=== PATIENT | male | born 1950 | race Two or more races ===

== ENCOUNTER 2018-02-07 08:28 | Inpatient (IN) | payer OTHER ==
[~2018-02-07] VITALS: Ht 172.7 cm; Wt 104.3 kg
--- NOTE | 2018-02-07 08:40 | NUR ---
PLZ SEE PRE OP ADMISSION NOTES
[2018-02-07] MEDS ORDERED: MIDAZOLAM HCL 2 MG/2ML VIAL ONE (10:09)
[2018-02-07] MEDS ORDERED: BUPIVACAINE 0.75% DEXT-PF 2 ML AMPUL ONE (10:12)
[2018-02-07] MEDS ORDERED: TRANEXAMIC ACID 3,000 MG in SODIUM CHLORIDE IRRIG SOLUTION 70 ML IR ONE (10:30)
[2018-02-07] MEDS ORDERED: BACITRACIN 50000 UNITS/VIAL ONE (10:32)
[2018-02-07] MEDS ORDERED: LOSA-22 PO (11:51)
[2018-02-07] MEDS ORDERED: HYDROMORPHONE INJ 2 MG/ML DISP.SYRIN IV PRN (12:30)
[2018-02-07] MEDS ORDERED: DOCUSATE SODIUM 250 MG CAPSULE PO PRN (12:30)
[2018-02-07] MEDS ORDERED: HYDROCODONE/APAP 5/325MG 1 EACH TABLET PO PRN ×2 (12:30)
[2018-02-07] MEDS ORDERED: ACETAMINOPHEN 325 MG TABLET PO PRN ×2 (12:30→15:00)
[2018-02-07 12:40] VITALS: BP 136/75
--- NOTE | 2018-02-07 12:40 | NUR ---
Patient arrived to the unit via bed. Awake, alert and oriented X4. Denies pain/discomfort. VS WNL. Patient reports regaining a sensation in lower extremities after spinal block. Spann catheter present. L/Knee immobilizer in place. Bed is locked in lowest position, side rails up x2, bed alarm is on. Call light within reach. educated to call for assistance using the call light. Family at the bedside. Patient/family verbalized understanding. All needs are met. Will continue to assess/monitor throughout the shift.
--- NOTE | 2018-02-07 12:48 | NUR ---
termite control representative applied.
--- NOTE | 2018-02-07 12:50 | NUR ---
Received orders with the chart. Read back and verified. Will record and carry orders as received.
[2018-02-07] MEDS ORDERED: ONDANSETRON HCL/PF 4 MG/2 ML VIAL IVP PRN (13:00)
--- NOTE | 2018-02-07 14:25 | NUR ---
Patient reported pain rating 10/10 in left knee. [place] administered as ordered. Will re-assess for pain when appropriate.
[2018-02-07] MEDS ORDERED: MAG HYDROX/AL HYDROX/SIMETH 30 ML UDC PO PRN (15:00)
[2018-02-07] MEDS ORDERED: MAGNESIUM HYDROXIDE 30 ML UDC PO PRN (15:00)
[2018-02-07] MEDS ORDERED: Z GUARD REMEDY 2 OZ OINT TP PRN (15:00)
[2018-02-07 15:47] VITALS: BP 152/79
[2018-02-07 16:00] VITALS: BP 152/79
[2018-02-07] MEDS ORDERED: oxyCODONE IR immediate release 5 MG PO PRN (16:30)
[2018-02-07] MEDS ORDERED: diphenhydrAMINE HCL 25 MG CAPSULE PO PRN (16:30)
[2018-02-07] MEDS ORDERED: HYDROCODONE/APAP 10/325MG 1 EA TABLET PO PRN (16:30)
[2018-02-07] MEDS ORDERED: oxyCODONE IR immediate release 5 MG PO ONE (16:37)
[2018-02-07] MEDS ORDERED: CLONIDINE HCL 0.1 MG TABLET PO PRN (17:00)
[2018-02-07] MEDS: DOCUSATE SODIUM 100 MG CAPSULE PO SCH (17:07)
[2018-02-07] MEDS: LOSARTAN/HCTZ 50-12.5MG/ 1 EA TABLET PO SCH (17:07)
--- NOTE | 2018-02-07 17:30 | NUR ---
Patient's medical transportation phone number is . communicated to Maria Alejandra, the caseworker
--- NOTE | 2018-02-07 19:54 | NUR ---
RESORT HOST OPENING NOTE RECEIVED PATIENT IN BED, ALERT ORIENTED X4. ON ROOM AIR, TOLERATING WELL. RESPIRATIONS EVEN AND UNLABORED. IN NO APPARENT DISTRESS AT THIS TIME. PATIENT DENIES SOB. SAYS HE HAS PAIN IN LEFT KNEE 12/26. ABLE TO COMMUNICATE NEEDS. PATIENT WITH RIGHT HAND IVC 18G, PATENT AND INTACT, NO FLUIDS RUNNING AT THIS TIME. CASTLE CATH IN PLACE. WELL DRAINING CLEAR YELLOW URINE. KEPT CLEAN AND COMFORTABLE, SAFETY MEASURES IN PLACE, BED IN LOW LOCKED POSITION, SIDE RAILS UP X2, CALL LIGHT WITHIN EASY REACH. WILL CONTINUE TO MONITOR.
[2018-02-07 20:00] VITALS: BP 152/85
[2018-02-07 20:07] VITALS: BP 152/85
--- NOTE | 2018-02-07 20:12 | NUR ---
ASSEMBLER MECHANICAL ORDNANCE CLOSING NOTE PATIENT IN BED, ALERT ORIENTED X4. ON ROOM AIR, TOLERATING WELL. RESPIRATIONS EVEN AND UNLABORED. IN NO APPARENT DISTRESS AT THIS TIME. PATIENT DENIES SOB. SAYS HE HAS PAIN IN LEFT KNEE 3/. PATIENT IS IN BED. BED IS LOCKED IN LOWEST POSITION, SIDE RAILS UP X2, BED ALARM IS ON. CALL LIGHT WITHIN REACH. EDUCATED TO CALL FOR ASSISTANCE AND VERBALIZED UNDERSTANDING. ALL NEEDS ARE MET. ENDORSED TO THE VALUE ENGINEER NURSE FOR JEAN CARLOS.
[2018-02-07] MEDS: HYDROMORPHONE INJ 0.5 MG/0.5 ML SYRINGE SQ PRN (20:37)
[2018-02-07] MEDS: CEFAZOLIN SODIUM 1 GM in IV SODIUM CHLORIDE 0.9% 50 ML IV SCH (21:27)
[2018-02-07] MEDS: TAMSULOSIN 0.4 MG CAP.SR.24H PO SCH (21:27)
[2018-02-07] MEDS ORDERED: SENNOSIDES 8.6 MG TABLET PO PRN (22:00)
[2018-02-07] MEDS ORDERED: BISACODYL SUPP (10 MG) 10 MG/SUPP.RECT SUPP.RECT RC PRN (22:00)
[2018-02-07] MEDS ORDERED: ZOLPIDEM TARTRATE 5 MG TABLET PO PRN (22:00)
[2018-02-08] MEDS: HYDROMORPHONE INJ 0.5 MG/0.5 ML SYRINGE SQ PRN ×3 (01:12→17:51)
[2018-02-08] MEDS: CEFAZOLIN SODIUM 1 GM in IV SODIUM CHLORIDE 0.9% 50 ML IV SCH (05:25)
--- NOTE | 2018-02-08 06:43 | NUR ---
MS RN CLOSING NOTE PATIENT IN BED, SLEEPING, EASILY AROUSED WITH VERBAL STIMULI, ORIENTED X4. ON ROOM AIR, TOLERATING WELL. RESPIRATIONS EVEN AND UNLABORED. IN NO APPARENT DISTRESS OR DISCOMFORT AT THIS TIME. PATIENT DENIES SOB AND PAIN. ABLE TO COMMUNICATE NEEDS. PATIENT WITH RIGHT HAND IVC 18G, PATENT AND INTACT, SALINE LOCK. CASTLE CATH IN PLACE. WELL DRAINING [place] COLOR URINE. KEPT CLEAN AND COMFORTABLE, ALL NEEDS ATTENDED. SAFETY MEASURES IN PLACE, BED IN LOW LOCKED POSITION, SIDE RAILS UP X2, CALL LIGHT WITHIN EASY REACH. WILL ENDORSE TO AM NURSE FOR JEAN CARLOS
[2018-02-08 06:45] LABS: HEMATOCRIT 42 % (39-51); HEMOGLOBIN 14.6 g/dL (13.5-17.5); LYMPHOCYTES # (AUTO) 1.2 /CMM (0.8-4.8); LYMPHOCYTES % (AUTO) 7.9 % (20.0-44.0); MEAN CORPUSCULAR HGB CONC 35 g/dl (31.0-36.0); MEAN CORPUSCULAR VOLUME 89 fL (80-96); MONOCYTES # (AUTO) 1.2 /CMM (0.1-1.30); MONOCYTES % (AUTO) 7.8 % (2.0-12.0); NEUTROPHILS # (AUTO) 12.7 /CMM (1.8-8.9); NEUTROPHILS % (AUTO) 84.3 % (43.0-81.0); PLATELET COUNT (AUTO) 230 /CMM (150-450); RDW COEFFICIENT OF VARIATION 12.5 (11.5-15.0); RED BLOOD CELL COUNT(AUTO) 4.79 MIL/uL (4.5-6.0)
[2018-02-08 07:16] LABS: CREATININE 0.8 mg/dL (0.6-1.3); PHOSPHORUS 3.3 mg/dL (2.5-4.9); POTASSIUM 3.8 mmol/L (3.5-5.1)
[2018-02-08] MEDS: PANTOPRAZOLE 40 MG TABLET.DR PO SCH (07:35)
[2018-02-08 08:00] VITALS: BP_SYST 162; BP_DIAS 80; BP_DIAS 89
--- NOTE | 2018-02-08 09:14 | NUR ---
PATIENT PRESENTED WITH ONE EPISODE OF DARK BROWN EMESIS. REPORTS NAUSEA. WILL ADMINISTER ZOFRAN ORDERED.
[2018-02-08] MEDS: DOCUSATE SODIUM 100 MG CAPSULE PO SCH ×2 (09:15→17:50)
[2018-02-08] MEDS: LOSARTAN/HCTZ 50-12.5MG/ 1 EA TABLET PO SCH ×2 (09:15→17:51)
[2018-02-08] MEDS: ASPIRIN 325 MG TABLET PO SCH (09:16)
[2018-02-08] MEDS: oxyCODONE IR immediate release 5 MG PO PRN ×3 (09:16→23:30)
[2018-02-08] MEDS: ONDANSETRON HCL/PF 4 MG/2 ML VIAL IV PRN ×2 (09:17→18:05)
--- NOTE | 2018-02-08 09:18 | NUR ---
OR MISSED MEDICATION DOCUMENTED NON-ADMIN TO RID OF RED PASSED DUE REMINDER.
--- NOTE | 2018-02-08 09:19 | NUR ---
PATIENT COMPLAINED OF ACUTE PAIN RATING 10/10 IN LEFT KNEE. NARCOTIC ANALGESIC ADMINISTERED ORDERED.
--- NOTE | 2018-02-08 09:20 | NUR ---
PHYSICAL THERAPIST AT THE BEDSIDE.
--- NOTE | 2018-02-08 10:18 | NUR ---
SPOKE TO DR RODRÍGUEZ ON THE PHONE. REPORTED PATIENT HAD ONE EPISODE OF DARK COLORED PASTY EMESIS. DR DONAHUE SPOKE TO CHARGE NURSE. NO ORDERS RECEIVED ART THIS TIME.
[2018-02-08] MEDS ORDERED: BISACODYL SUPP (10 MG) 10 MG/SUPP.RECT SUPP.RECT RC ONE (11:00)
[2018-02-08] MEDS ORDERED: SIMETHICONE 80 MG TAB.CHEW PO PRN (12:30)
--- NOTE | 2018-02-08 14:27 | NUR ---
Patient reports acute pain rating 9/10 in left knee. Oxy Ir being administered as ordered. Patient is still constipated. Milk of magnesia being administered as ordered.
[2018-02-08 16:00] VITALS: BP 159/75
--- NOTE | 2018-02-08 18:00 | NUR ---
PAtient had a bowel movement. Stool was hard to pass. Senna administered as ordered. PAtient complained of pain rating 10/10 in L/knee. Dilaudid administered as ordered.
--- NOTE | 2018-02-08 18:09 | NUR ---
Patient presented with an episode of emesis during the dinner meal with scant amount of liquid. Zofran administered as ordered.
--- NOTE | 2018-02-08 19:40 | NUR ---
MS RN CLOSING NOTE PATIENT IN BED, SLEEPING, EASILY AROUSED WITH VERBAL STIMULI, ORIENTED X4. ON ROOM AIR, TOLERATING WELL. RESPIRATIONS EVEN AND UNLABORED. IN NO APPARENT DISTRESS OR DISCOMFORT AT THIS TIME. PATIENT DENIES SOB AND PAIN. ABLE TO COMMUNICATE NEEDS. PATIENT WITH RIGHT HAND IVC 18G, PATENT AND INTACT, SALINE LOCK. KEPT CLEAN AND COMFORTABLE, ALL NEEDS ATTENDED. EMESIS CEASED. SAFETY MEASURES IN PLACE, BED IN LOW LOCKED POSITION, SIDE RAILS UP X2, CALL LIGHT WITHIN EASY REACH.ENDORSED TO THE AVIONICS SYSTEMS ENGINEER NURSE FOR JEAN CARLOS.
--- NOTE | 2018-02-08 19:50 | NUR ---
RN INITIAL NOTES: RECEIVED REPORT FROM GENE LLAMAS. PT IN BED, SLEEPING, AROUSES TO TACTILE STIMULI, REASSESS PT'S PAIN LEVEL HE STATED, HE'S PAIN IS MANAGED, PS 0/10, HE ALSO DENIES ANY FEELING OF NAUSEA OR VOMITING. PT BEEN IN SO MUCH PAIN AND BEEN VOMITING THROUGHOUT THE DAY. MD AWARE. IV ACCESS PATENT AND FLUSHING WELL, INFUSING WITH LR AT 100 ML/HR. PT IS A/O X3, ON RA RESPIRATION EVEN AND UNLABORED. S/P LEFT KNEE ARTHROPLASTY WITH KNEE IMMOBILIZER IN PLACED. PT DENIES ANY NUMBNESS TINGLING SENSATION ON LEFT LEG, NOTED WITH GOOD CAPILLARY REFILL, AND POSITIVE PEDAL PULSES. PT REFUSED SCD TO BE PLACED, DESPITE PROVIDING EDUCATION. DISCUSSED WITH PT REGARDING PLAN OF CARE, PT UNDERSTAND AND AGREE. SAFETY PRECAUTIONS FOR FALL INITIATED, CALL LIGHT IN REACH, URINAL WITHIN REACH. WILL CONTINUE MONITORING PT.
[2018-02-08 20:00] VITALS: BP 153/87
[2018-02-08 20:28] VITALS: BP 153/87
--- NOTE | 2018-02-08 20:55 | NUR ---
RN NOTES: WENT TO CHECK ON THE PT TO ASK HIS PAIN LEVEL, UPON GETTING TO THE ROOM, PT IS SLEEPING, SNORING, APPEARS CALM AND COMFORTABLE, AROUSES TO TACTILE STIMULI, ASKED PT ABOUT HIS PAIN LEVEL, HE STATED HE'S FINE, INFORMED THAT HIS PAIN MEDICATION OXY IR IS DUE IN CASE HE WOULD LIKE IT FOR PAIN LEVEL OF 4-6 OR DILAUDID SQ FOR PAIN LEVEL OF 8-10. PT STATED HE'S OKAY FOR NOW, AND NO FEELING OF NAUSEA OR THROWING UP.
[2018-02-08] MEDS: IV LR 1000 ML 1,000 ML IV PRN (20:59)
[2018-02-08 21:00] VITALS: BP 151/85
[2018-02-08] MEDS: TAMSULOSIN 0.4 MG CAP.SR.24H PO SCH (21:07)
--- NOTE | 2018-02-08 21:10 | NUR ---
RN NOTES: PT AWAKE, USED URINAL, DUE MEDS GIVEN, PT STATED HE DOESNT FEEL ANY PAIN AT THIS TIME, AND NO NAUSEA OR VOMITING. WILL CONTINUE MONITORING PT.
--- NOTE | 2018-02-08 21:30 | NUR ---
INCENTIVE SPIROMETRY TEACHING: PT MORE AWAKE, INSTRUCTED ON HOW TO USE INCENTIVE SPIROMETRY, USE AT LEAST EVERY HOUR WHILE AWAKE, BEFORE EATING. DEMONSTRATION PROVIDED TO THE PT.
[2018-02-08] MEDS ORDERED: ATORVASTATIN 10 MG TABLET PO SCH (22:00)
--- NOTE | 2018-02-08 23:30 | NUR ---
PRN OXY IR: WENT TO CHECK ON THE PT REASSESS PT'S PAIN LEVEL, PT STATED HE'S PAIN IS 5/10, INFORMED PT THAT OXY IR IS AVAILABLE FOR PAIN LEVEL 4-6, PT AGREE AND DECIDED TO TAKE THE MEDICINE. SALTINE CRACKERS PROVIDED TO THE PT PRIOR TO GIVING THE MEDICINE TO PREVENT ANY STOMACH UPSET. PRN OXY IR 2TABS ADMINISTERED TO THE PT AT THIS TIME. PT ALSO COMPLAINING ITS TOO COLD IN HIS ROOM, TURN THE JUSTIN, PROVIDED PT WITH 3 WARM BLANKETS. WILL CONTINUE TO MONITOR AND REASSESS PT'S PAIN LEVEL
--- NOTE | 2018-02-09 00:30 | NUR ---
RN NOTES: SEEN PT SLEEPING AT THIS TIME, APPEARS CALM AND COMFORTABLE, NO FACIAL [place] NOTED
--- NOTE | 2018-02-09 02:00 | NUR ---
RN NOTES: PT ASLEEP, APPEARS CALM AND COMFORTABLE, NO FACIAL GRIMACE NOTED
[2018-02-09] MEDS: oxyCODONE IR immediate release 5 MG PO PRN (03:35)
--- NOTE | 2018-02-09 03:35 | NUR ---
PRN OXY IR: PT IS AWAKE, REASSESS PAIN LEVEL PT STATED ITS 4.5/10, INFORMED NUMBERS/RATE IS ONLY 0-10 NO HALF, PT CLAIMED ITS 4/10, OFFERED PAIN MEDICATION PT AGREE, PROVIDED SALTINE CRACKERS TO PREVENT STOMACH UPSET, PRN OXY IR 10 MG ADMINISTERED TO THE PT AT THIS TIME. WILL CONTINUE MONITORING AND REASSESSING PT'S PAIN LEVEL
--- NOTE | 2018-02-09 04:15 | NUR ---
RN NOTES: ASSISTED PT TO THE COMMODE WITH HELP OF DECK MATE, AFTERWARDS PT C/O SO MUCH PAIN ON HIS LEFT LEG/KNEE AREA, STATED PAIN WENT UP TO 8/10. RESTED PT LEG,WILL REASSESS AFTER 15MINS
--- NOTE | 2018-02-09 04:35 | NUR ---
RN NOTES: REASSESS PT'S PAIN HE STATED IT STILL 04/27, REQUESTING FOR PAIN MEDICATION. INFORM PT I WILL GIVE HIM DILAUDID INJECTION SUBCUTANEOUS FOR HIS PAIN MANAGEMENT, PT AGREE AND UNDERSTAND
[2018-02-09] MEDS: HYDROMORPHONE INJ 0.5 MG/0.5 ML SYRINGE SQ PRN (04:56)
--- NOTE | 2018-02-09 04:56 | NUR ---
PRN DILAUDID SQ: PT C/O 8 PAIN ON HIS LEFT KNEE, REQUESTING FOR PAIN MEDICATION. PRN DILAUDID 1MG SQ ADMINISTERED ON TIFFANIE AT THIS TIME. WILL CONTINUE MONITORING AND REASSESSING PT'S PAIN LEVEL
--- NOTE | 2018-02-09 06:48 | NUR ---
RN CLOSING NOTES: PT IN BED, AWAKE, LAST P[AIN MEDS GIVEN AT 0500AM, STATED PAIN IS TOLERABLE. DENIES ANY N/V AT THIS TIME. IV ACCESS REMAINS PATENT AND FLUSHING WELL, INFUSING WITH LR AT 100ML/HR. LEFT KNEE DRESSING REMAINS IN PLACED, NO ACTIVE BLEEDING NOTED, LEFT LEG/KNEE IMMOBILIZER IN PLACED. URINAL WITHIN REACH. EXIT CARE COMPLETED. WILL RELAY TO DAY RN TO PREPARE DC PAPER WORKS, BUNDLE TIER TIME IS 0200PM PER MABEL FROM [facility], HOWEVER PT HAS NO DC ORDER YET. VS REMAINS STABLE, NEEDS ATTENDED. SAFETY PRECAUTIONS FOR FALL REMAINS ENGAGED, CALL LIGHT IN REACH. WILL ENDORSE TO DAY RN FOR JEAN CARLOS.
[2018-02-09] MEDS: PANTOPRAZOLE 40 MG TABLET.DR PO SCH (07:30)
--- NOTE | 2018-02-09 07:39 | NUR ---
MS RN OPENING NOTES RECEIVED PATIENT IN STABLE CONDITON. IN NO APPARENT DISTRESS. BEDSIDE RAILS ARE UPX2. BED IS LOCKED AND LOWERED. CALL LIGHT IS WITHIN REACH. IV LINE IS INTACT AND PATENT. WILL CONTINUE TO MONITOR.
[2018-02-09 08:00] VITALS: BP 122/78
[2018-02-09 09:17] VITALS: BP 122/78
[2018-02-09] MEDS: DOCUSATE SODIUM 100 MG CAPSULE PO SCH (09:17)
[2018-02-09] MEDS: LOSARTAN/HCTZ 50-12.5MG/ 1 EA TABLET PO SCH (09:17)
[2018-02-09] MEDS: IV LR 1000 ML 1,000 ML IV PRN (09:17)
[2018-02-09] MEDS: ASPIRIN 325 MG TABLET PO SCH (09:17)
[2018-02-09] MEDS: ONDANSETRON HCL/PF 4 MG/2 ML VIAL IV PRN (09:19)
--- NOTE | 2018-02-09 09:33 | NUR ---
UNABLE TO SCAN 0900 AM MEDICATION FOR PATIENT. MEDICATION WAS ADMINISTERED.
[2018-02-09] MEDS ORDERED: oxyCODONE IR immediate release 5 MG PO ONE (12:00)
[2018-02-09] MEDS ORDERED: MAGNESIUM CITRATE 296 ML BOTTLE PO ONE (12:00)
--- NOTE | 2018-02-09 15:18 | NUR ---
DISCHARGED PATIENT IN STABLE CONDITION. IN NO APPARENT DISTRESS. ALL NEEDS WERE MET. EXITCARE WAS PROVIDED TO THE PATIENT. PRESCRIPTIONS WERE PROVIDED TO THE PATIENT. PATIENT HAS DME EQUIPMENT WITH HIM. BELONGINGS WERE CHECKED. IV LINE WAS DISCONTINUED. ID WAS REMOVED. PATIENT WAS ESCORTED OUT OF FACILITY VIA [facility] [phone].
== END 2018-02-09 15:19 | disposition home health service (06) | DRG 470 ==
LOC: DS 08:28 → MED 10:49
PROVIDERS: ADMIT Specialist; ATTEND Specialist
PROC: 0SRD0J9 Replacement of Left Knee Joint with Synthetic Substitute, Cemented, Open Approach (ICD-10-PCS; principal; 2018-02-07 13:55)
DX: M17.12 Unilateral primary osteoarthritis, left knee (principal); D72.829 Elevated white blood cell count, unspecified; E66.9 Obesity, unspecified; I10 Essential (primary) hypertension; N40.0 Benign prostatic hyperplasia without lower urinary tract symptoms; Z68.35 Body mass index [BMI] 35.0-35.9, adult; E78.5 Hyperlipidemia, unspecified; R73.9 Hyperglycemia, unspecified
CPT/HCPCS: 36415; 80048-TC; 80061-TC; 83735-TC; 84100-TC; 85025-TC; 86850-TC; 86921-TC; 87081-TC; 88305-TC; 88311-TC; 97110-TC; 97116-TC; 97530-TC; 97760-TC; A4216; A4217; A6402; C1713; J0690; J2250; J2405; J3490; J7120; L1830; Z7610